=== PATIENT | male | born 1940 | race Caucasian/White ===

== ENCOUNTER 2017-06-20 12:13 | Inpatient (IN) | payer OTHER ==
[~2017-06-20] VITALS: Ht 58.4 cm; Wt 5.0 kg
[~2017-06-20 12:13] MED LIST: ALTACE2.5 MG; CENTRUM SILVER1 EAC2; COUMADIN5 MG; GLIPIZIDE10 MG; LANOXIN0.25 MG; LANTUS SOLOSTAR3 ML; LASIX20 MG; PNEU16DI2; PROSCAR5 MG; RANITIDINE HCL150 M1; SOTALOL80 MG; SYNTHROID112 MCG; TRADJENTA5 MG; VITAMIN D400 UNIT; ZOCOR5 MG; [UNRECOGNIZED DRUG - OTHER]
== END 2017-07-11 17:45 | DRG 264 ==
LOC: MEDJ 12:13 → SEC-K 12:44 → MEDJ 06-21 10:26
PROC: 30233N1 Transfusion of Nonautologous Red Blood Cells into Peripheral Vein, Percutaneous Approach (ICD-10-PCS; principal; 2017-06-21)
PROC: 8E0ZXY6 Isolation (ICD-10-PCS; 2017-06-21)
PROC: 02HV33Z Insertion of Infusion Device into Superior Vena Cava, Percutaneous Approach (ICD-10-PCS; 2017-06-22)
PROC: 3E0F7GC Introduction of Other Therapeutic Substance into Respiratory Tract, Via Natural or Artificial Opening (ICD-10-PCS; 2017-06-23)
PROC: 0JBN0ZZ Excision of Right Lower Leg Subcutaneous Tissue and Fascia, Open Approach (ICD-10-PCS; 2017-06-24)
PROC: B246ZZZ Ultrasonography of Right and Left Heart (ICD-10-PCS; 2017-06-25)
PROC: 0JBP0ZZ Excision of Left Lower Leg Subcutaneous Tissue and Fascia, Open Approach (ICD-10-PCS; 2017-07-01)
PROC: 0JBN0ZZ Excision of Right Lower Leg Subcutaneous Tissue and Fascia, Open Approach (ICD-10-PCS; 2017-07-01)
PROC: 4A033R1 Measurement of Arterial Saturation, Peripheral, Percutaneous Approach (ICD-10-PCS; 2017-07-04)
DX: E11.51 Type 2 diabetes mellitus with diabetic peripheral angiopathy without gangrene (principal); I50.23 Acute on chronic systolic (congestive) heart failure; L97.828 Non-pressure chronic ulcer of other part of left lower leg with other specified severity; L97.818 Non-pressure chronic ulcer of other part of right lower leg with other specified severity; L03.116 Cellulitis of left lower limb; I48.3 Typical atrial flutter; J90 Pleural effusion, not elsewhere classified; L03.115 Cellulitis of right lower limb; J44.1 Chronic obstructive pulmonary disease with (acute) exacerbation; E11.622 Type 2 diabetes mellitus with other skin ulcer; I87.2 Venous insufficiency (chronic) (peripheral); I25.10 Atherosclerotic heart disease of native coronary artery without angina pectoris; Z95.0 Presence of cardiac pacemaker; E11.65 Type 2 diabetes mellitus with hyperglycemia; I48.0 Paroxysmal atrial fibrillation; D64.89 Other specified anemias; B96.4 Proteus (mirabilis) (morganii) as the cause of diseases classified elsewhere; B96.1 Klebsiella pneumoniae [K. pneumoniae] as the cause of diseases classified elsewhere; B96.5 Pseudomonas (aeruginosa) (mallei) (pseudomallei) as the cause of diseases classified elsewhere; B95.1 Streptococcus, group B, as the cause of diseases classified elsewhere; Z16.12 Extended spectrum beta lactamase (ESBL) resistance; I27.29 Other secondary pulmonary hypertension; R09.02 Hypoxemia; B95.61 Methicillin susceptible Staphylococcus aureus infection as the cause of diseases classified elsewhere; L89.150 Pressure ulcer of sacral region, unstageable